=== PATIENT | female | born 1980 | race Caucasian/White ===

== ENCOUNTER 2018-03-30 13:40 | Emergency (ER) | payer MEDICAID, OTHER ==
[2018-03-30 13:50] VITALS: BP 126/85
[2018-03-30] MEDS ORDERED: SULFAMETHOXAZOLE/TRIMETHOPRIM 800-160 MG TABLET PO ONE (14:57)
[2018-03-30] MEDS ORDERED: CEPHALEXIN 500 MG CAPSULE PO ONE (14:57)
--- NOTE | 2018-03-30 15:03 | ER Document Report ---
ED Skin Rash/Insect Bite/Abscs - General Chief Complaint: Abscess Stated Complaint: POSSIBLE RASH Time Seen by Provider: 03/30/18 14:38 Mode of Arrival: Ambulatory Information source: Patient TRAVEL OUTSIDE OF THE [place] IN LAST 30 DAYS: No - HPI Patient complains to provider of: Tender/swollen area Notes: Patient is here with complaints of tender swollen area to the right jaw started yesterday. The patient states that she had what she thought was a small pimple that she attempted to pop yesterday. This morning she woke up the area was swollen and more tender. No fever. No nausea, vomiting, diarrhea. No numbness , tingling, weakness. No diabetes, HIV, cancer, immunosuppression. Pain is worse with touching the area, nothing seems to make it better. No other complaints at this time. - Related Data Allergies/Adverse Reactions: NSAIDS (Non-Steroidal Anti-Inflamma [Nsaids] Allergy (Verified 03/30/18 13:43) Past Medical History - Social History Smoking Status: Unknown if Ever Smoked Family History: Reviewed & Not Pertinent - Past Medical History Cardiac Medical History: Reports: Hx Hypercholesterolemia - Immunizations Hx Diphtheria, Pertussis, Tetanus Vaccination: Yes Review of Systems - Review of Systems -: Yes All other systems reviewed and negative Physical Exam - Vital signs Vitals: Temp Pulse Resp BP Pulse Ox 97.9 F 94 20 126/85 H 98 03/30/18 13:49 03/30/18 13:49 03/30/18 13:49 03/30/18 13:49 03/30/18 13:49 - Notes Notes: GENERAL: alert, cooperative, nontoxic, no distress. HEAD: normocephalic, atraumatic EYES: conjunctiva pink without discharge, no external redness or swelling. EARS: no external swelling, no external redness NOSE: atraumatic, no external swelling MOUTH/THROAT: mucous membranes moist and pink NECK: soft, supple, full range of motion, no meningismus. CHEST: no distress, lungs clear and equal throughout. No wheezing, rales, rhonchi. CARDIAC: regular rate and rhythm, no murmur, normal capillary refill, normal pulses. BACK: full range of motion, no CVA tenderness. EXTREMITIES: full range of motion of all extremities. No redness, no swelling. NEURO: alert and oriented 3, no focal deficits, full range of motion of all extremities. PYSCH: appropriate mood, affect. Patient is cooperative. SKIN: pink, warm, dry, no rash. Patient has a 1 cm indurated abscess to the right jaw area. There is a small opening noted. When pushing from the inside of the mouth out there is a small amount of serosanguineous fluid that comes from the whole on the skin side of the face. No sublingual swelling or induration. No difficulty breathing or swallowing. No facial cellulitis. Course - Re-evaluation Re-evalutation: 03/30/18 15:00 Patient is nontoxic appearing with stable vitals. Here with complaints of possible abscess to the right jaw area. She had a pimple that she attempted to pop yesterday and today woke up with swelling to this area. She has a small indurated abscess. There is no significant fluctuance. There is a small opening to the skin draining some serosanguineous fluid. No purulent drainage. No difficulty breathing or swallowing. No sign of Benton's angina. No fever. This point does not feel fluctuant. The patient was offered an I&D at this time versus antibiotics and warm compresses. She states that she would prefer to just take antibiotics and apply warm compresses and she will return if the swelling gets worse or she has any worsening pain. I do believe that this is reasonable as this area already has a small opening and this would potentially prevent less scarring due to an I&D to the face. Patient will be given a dose of Bactrim and Keflex here in emergency department. She will be discharged home with Bactrim, Keflex, [place]. Instructed to apply warm compresses. Follow-up if not improved in the next 2 days, sooner for worsening pain, fever, swelling, difficulty breathing or swelling, or for any further concerns. The patient is noted to have elevated blood pressure during today's emergency department visit. The patient was informed of this finding. The patient was instructed that this may be related to pre-hypertension and requires further evaluation with a primary care provider. The patient has no hypertensive symptoms at this time. The patient's emergency department workup and current diagnosis were explained to the patient and or family. Follow-up instructions were provided. Medications if prescribed were discussed. Instructions for when to return to the emergency department including specific worrisome symptoms were discussed with the patient and/or family. - Vital Signs Vital signs: Temp Pulse Resp BP Pulse Ox 97.9 F 94 20 126/85 H 98 03/30/18 13:49 03/30/18 13:49 03/30/18 13:49 03/30/18 13:49 03/30/18 13:49 Discharge - Discharge Clinical Impression: Facial abscess Condition: Stable Disposition: HOME, SELF-CARE Instructions: Abscess ([facility]), Cephalexin ([facility]), Oral Narcotic Medication ([facility]), Trimethoprim-Sulfa ([facility]) Additional Instructions: Take medication as prescribed. Apply warm compresses sore area. Follow-up if not better in 2 days, sooner for worsening pain, fever, swelling, difficulty breathing or swelling, or for any further concerns. Your blood pressure was elevated during today's visit. Have this rechecked with your doctor. The medication you were prescribed today may cause drowsiness. Do not drive or operate heavy machinery while taking this medication. Prescriptions: Cephalexin Monohydrate [Keflex 500 mg Capsule] 500 mg PO Q6H #40 capsule Hydrocodone/Acetaminophen [[place] 5-325 mg Tablet] 2 tab PO Q6H PRN #15 tab PRN Reason: Sulfamethoxazole/Trimethoprim [Bactrim Ds Tablet] 1 each PO BID #20 tablet Forms: Elevated Blood Pressure, Smoking Cessation Education Referrals: ANABELL EM MD [Primary Care Provider] - Follow up as needed
== END 2018-03-30 15:09 | disposition home or self-care (01) ==
LOC: ER 13:40
DX: L02.01 Cutaneous abscess of face (principal); E78.00 Pure hypercholesterolemia, unspecified
CPT/HCPCS: 99282; J3490

== ENCOUNTER 2019-07-10 09:38 | Emergency (ER) | payer MEDICAID, OTHER ==
[2019-07-10] MEDS ORDERED: DIPHENHYDRAMINE HCL 50 MG/ML VIAL IV ONE (10:07)
[2019-07-10] MEDS ORDERED: METHYLPREDNISOLONE INJ 125 MG/2 ML SDV IV ONE (10:08)
[2019-07-10] MEDS ORDERED: NORMAL SALINE 1000 ML 1,000 ML IV ONE (10:08)
[2019-07-10] MEDS ORDERED: FAMOTIDINE INJ/PF 20 MG/2 ML SDV IV ONE (10:08)
--- NOTE | 2019-07-10 10:39 | ER Document Report ---
HPI - HPI Patient complains to provider of: allergic reaction Time Seen by Provider: 07/10/19 09:58 Onset: Yesterday Onset/Duration: Worse Pain Level: Denies Context: Patient presents complaining of hives and some facial swelling that started yesterday. Patient denies any difficulty breathing although does feel some discomfort in her throat. Patient denies any difficulty swallowing. Patient states that she had been on amoxicillin and started to develop an allergic reaction and stopped the medication 2 days ago. Associated Symptoms: denies: Chest pain, Nonproductive cough, Productive cough, Fever, Headache Exacerbated by: Denies Relieved by: Denies Similar symptoms previously: No Recently seen / treated by doctor: Yes - ROS ROS below otherwise negative: Yes Systems Reviewed and Negative: Yes All other systems reviewed and negative - CONSTITUTIONAL Constitutional: DENIES: Fever, Chills - EENT EENT: DENIES: Sore Throat, Nasal Drainage-Clear, Congestion - CARDIOVASCULAR Cardiovascular: DENIES: Chest pain - RESPIRATORY Respiratory: DENIES: Trouble Breathing, Coughing - GASTROINTESTINAL Gastrointestinal: DENIES: Nausea, Patient vomiting - REPRODUCTIVE Reproductive: DENIES: : - DERM Skin Color: Normal, [place] Skin Problems: Rash Past Medical History - General Information source: Patient - Social History Smoking Status: Current Every Day Smoker Chew tobacco use (# tins/day): No Frequency of alcohol use: None Drug Abuse: None 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 Family History: Reviewed & Not Pertinent Patient has suicidal ideation: No Patient has homicidal ideation: No - Past Medical History Cardiac Medical History: Reports: Hx Hypercholesterolemia, Hx Hypertension Renal/ Medical History: Denies: Hx Peritoneal Dialysis Psychiatric Medical History: Reports: Hx Attention Deficit Hyperactivity Disorder, Hx Depression - anxiety Past Surgical History: Reports: Hx Oral Surgery - cleft palate sx - Immunizations Hx Diphtheria, Pertussis, Tetanus Vaccination: Yes Vertical Provider Document - CONSTITUTIONAL Agree With Documented VS: Yes Exam Limitations: No Limitations General Appearance: WD/WN, No Apparent Distress - INFECTION CONTROL TRAVEL OUTSIDE OF THE [place] IN LAST 30 DAYS: No - HEENT HEENT: Atraumatic, Normal ENT Exam, Normocephalic Notes: No angioedema, no potential airway compromise - NECK Neck: Normal Inspection, Supple. negative: Lymphadenopathy-Left, Lymphadenopathy-Right - RESPIRATORY Respiratory: Breath Sounds Normal, No Respiratory Distress, Chest Non-Tender - CARDIOVASCULAR Cardiovascular: Regular Rhythm, No Murmur, Tachycardia - BACK Back: Normal Inspection - MUSCULOSKELETAL/EXTREMETIES Musculoskeletal/Extremeties: MAEW - NEURO Level of Consciousness: Awake, Alert, Appropriate Motor/Sensory: No Motor Deficit - DERM Integumentary: Warm, Dry, Rash - Scattered urticarial lesions to trunk and extremities Course - Re-evaluation Re-evalutation: 07/10/19 11:10 Patient denies any difficulty breathing or swallowing. Hives have decreased in intensity. Patient's tachycardia is resolved at this time. Patient is feeling much better. - Vital Signs Vital signs: Temp Pulse Resp BP Pulse Ox 97.6 F 124 H 17 129/84 H 99 07/10/19 09:41 07/10/19 09:41 07/10/19 09:41 07/10/19 09:41 07/10/19 10:17 Discharge - Discharge Clinical Impression: Allergic reaction Qualifiers: Encounter type: initial encounter Qualified Code(s): T78.40XA - Allergy, unspecified, initial encounter Condition: Stable Disposition: HOME, SELF-CARE Instructions: Acute Allergic Reaction ([facility]), Steroid Medication, Use of Diphenhydramine Additional Instructions: Return immediately for any new or worsening symptoms Followup with your primary care provider, call tomorrow to make a followup appointment Take Benadryl [id number] as directed to help with your symptoms Prescriptions: Famotidine [Pepcid 20 mg Tablet] 20 mg PO BID #12 tablet Prednisone [Deltasone 10 mg Tablet] 10 mg PO ASDIR PRN #21 tablet PRN Reason: Forms: Return to Work Referrals: ANABELL EM MD [Primary Care Provider] - Follow up as needed
[2019-07-10 11:23] VITALS: BP 117/80
== END 2019-07-10 11:23 | disposition home or self-care (01) ==
LOC: ER 09:38
DX: T78.40XA Allergy, unspecified, initial encounter (principal); R21 Rash and other nonspecific skin eruption; L50.9 Urticaria, unspecified; F17.200 Nicotine dependence, unspecified, uncomplicated; I10 Essential (primary) hypertension
CPT/HCPCS: J1200; J2930; J7030; S0028; 96361; 96374; 96375; 99283